=== PATIENT | male | born 1955 | race Caucasian/White ===

== ENCOUNTER 2021-11-23 12:29 | Inpatient (IN) | payer MEDICARE, OTHER ==
[~2021-11-23] VITALS: Ht 175.3 cm; Wt 122.7 kg
[2021-11-23 13:26] LABS: BASOPHILS % (AUTO) 0.6 % (0-1); EOSINOPHILS # (AUTO) 0.2 X10'3 (0-0.9); EOSINOPHILS % (AUTO) 4.3 % (0-6); HEMATOCRIT 40.4 % (42.0-52.0); HEMOGLOBIN 13.3 g/dl (14.0-17.9); LYMPHOCYTES % (AUTO) 17.3 % (21-51); MEAN CORPUSCULAR HEMOGLOBIN 27.1 PG (27.0-31.0); MEAN CORPUSCULAR HGB CONC 32.8 g/dL (33.0-36.5); MEAN CORPUSCULAR VOLUME 82.7 FL (78-98); MEAN PLATELET VOLUME 7.2 FL (7.4-10.4); MONOCYTES # (AUTO) 0.5 X10'3 (0-0.9); MONOCYTES % (AUTO) 9.2 % (2-12); NEUTROPHILS # (AUTO) 3.8 X10'3 (1.8-7.7); NEUTROPHILS % (AUTO) 68.6 % (42-75); PLATELET COUNT 293 X10'3 (140-440); RED BLOOD COUNT 4.89 X10'6 (4.70-6.10); WHITE BLOOD COUNT 5.6 X10'3 (4.5-11.0)
[2021-11-23 13:43] LABS: ALANINE AMINOTRANSFERASE 46 U/L (12-78); ALBUMIN 3.5 G/DL (3.4-5.0); ALBUMIN/GLOBULIN RATIO 0.9 (1.1-1.5); ALKALINE PHOSPHATASE 48 IU/L (46-116); ANION GAP 10 (8-16); ASPARTATE AMINO TRANSFERASE 31 U/L (10-37); BILIRUBIN,TOTAL 0.4 MG/DL (0.1-1.0); BLOOD UREA NITROGEN 22 MG/DL (7-18); BUN/CREATININE RATIO 16.9 (5.4-32.0); CALCIUM 8.5 MG/DL (8.5-10.1); CHLORIDE 107 MMOL/L (99-107); GLUCOSE 115 MG/DL (70-104); POTASSIUM 4.5 MMOL/L (3.5-5.1); SODIUM 142 MMOL/L (135-145); TOTAL CARBON DIOXIDE 24.8 MMOL/L (24-32); TOTAL PROTEIN 7.4 G/DL (6.4-8.2); eGFR 55 ML/MIN
--- NOTE | 2021-11-23 14:55 | NUR ---
Pt c/o chest pressure starting again 12/30. PA notified. Order for Nitro 0.4 SL received and administered po to pt.
[2021-11-23] MEDS ORDERED: nitroGLYCERIN 0.4mg SUBLingual tab SL ONE (14:59)
[2021-11-23] MEDS ORDERED: aspirin 325mg tablet PO ONE (15:35)
[2021-11-23] MEDS ORDERED: metoprolol tartrate 1mg/ml inj IV PRN (16:40)
[2021-11-23] MEDS ORDERED: aminophylline 250mg/10ml inj. IV PRN (16:40)
[2021-11-23] MEDS ORDERED: regadenoson 0.4mg/5ml syringe IV PRN (16:40)
[2021-11-23] MEDS ORDERED: magnesium 4gm in 100ml NS 100 ML IV PRN (16:40)
[2021-11-23] MEDS ORDERED: magnesium 2GM in 50ml NS 50 ML IV PRN (16:40)
[2021-11-23] MEDS ORDERED: potassium Cl 20 mEq SR tablet PO PRN ×2 (16:40)
[2021-11-23] MEDS ORDERED: magnesium hydroxide 30ml (MOM) UD suspension PO PRN (16:40)
[2021-11-23] MEDS ORDERED: morphine 2 MG/ML inj. syringe IV PRN ×2 (16:40)
[2021-11-23] MEDS ORDERED: acetaminophen 325mg tablet PO PRN (16:40)
[2021-11-23] MEDS ORDERED: ondansetron/PF 4mg/2ml inj IV PRN (16:40)
[2021-11-23] MEDS ORDERED: magnesium Cl slow-release 64mg tablet PO PRN (16:40)
[2021-11-23] MEDS ORDERED: potassium CL 10mEq/100ml bag 100 ML IV PRN (16:40)
[2021-11-23] MEDS ORDERED: nitroGLYCERIN 0.4mg SUBLingual tab SL PRN (16:40)
[2021-11-23] MEDS ORDERED: mag hydrox/Alum hydrox/simeth 30ml oral suspension PO PRN (16:40)
--- NOTE | 2021-11-23 16:50 | NUR ---
Pt reports no chest pressure at this time. Provided with ice water. Family at bedside.
[2021-11-23 17:14] LABS: MAGNESIUM 1.9 MG/DL (1.5-2.4); POTASSIUM 4.6 MMOL/L (3.5-5.1)
[2021-11-23 17:21] LABS: HEMOGLOBIN A1C 5.8 % (4.5-6.2)
--- NOTE | 2021-11-23 17:44 | NUR ---
states MD/ PA have received a copy of his medication list
--- NOTE | 2021-11-23 17:45 | NUR ---
Pt and family updated on wait for a bed
[2021-11-23] MEDS: K and/or MAG REPLACEMENT MC SCH (20:00)
[2021-11-23 21:00] VITALS: BP 167/77
--- NOTE | 2021-11-23 21:00 | NUR ---
Patient transfer from ER to PCU in a stable condition oriented to room bed in lower position call light within reach will continue to monitor and report changes
[2021-11-23] MEDS: docusate sod 100mg capsule PO SCH (21:37)
[2021-11-23] MEDS: enoxaparin 40mg/0.4ml syringe SQ SCH (21:37)
[2021-11-23 22:00] VITALS: BP 157/78
[2021-11-24] VITALS (13 sets, daily range): BP systolic 125–185; BP diastolic 72–93
[2021-11-24 07:01] LABS: BASOPHILS % (AUTO) 0.4 % (0-1); EOSINOPHILS # (AUTO) 0.3 X10'3 (0-0.9); EOSINOPHILS % (AUTO) 3.7 % (0-6); HEMATOCRIT 40.4 % (42.0-52.0); HEMOGLOBIN 13.4 g/dl (14.0-17.9); LYMPHOCYTES # (AUTO) 1.7 X10'3 (1.1-4.8); LYMPHOCYTES % (AUTO) 24.6 % (21-51); MEAN CORPUSCULAR HEMOGLOBIN 27.2 PG (27.0-31.0); MEAN CORPUSCULAR HGB CONC 33.2 g/dL (33.0-36.5); MEAN CORPUSCULAR VOLUME 81.9 FL (78-98); MEAN PLATELET VOLUME 7.5 FL (7.4-10.4); MONOCYTES # (AUTO) 0.8 X10'3 (0-0.9); MONOCYTES % (AUTO) 10.8 % (2-12); NEUTROPHILS # (AUTO) 4.2 X10'3 (1.8-7.7); NEUTROPHILS % (AUTO) 60.5 % (42-75); PLATELET COUNT 289 X10'3 (140-440); RED BLOOD COUNT 4.94 X10'6 (4.70-6.10); RED CELL DISTRIBUTION WIDTH 15.4 % (11.5-14.5)
[2021-11-24 07:12] LABS: ALANINE AMINOTRANSFERASE 42 U/L (12-78); ALBUMIN 3.5 G/DL (3.4-5.0); ALBUMIN/GLOBULIN RATIO 0.9 (1.1-1.5); ALKALINE PHOSPHATASE 51 IU/L (46-116); ANION GAP 8 (8-16); ASPARTATE AMINO TRANSFERASE 25 U/L (10-37); BILIRUBIN,TOTAL 0.4 MG/DL (0.1-1.0); BLOOD UREA NITROGEN 19 MG/DL (7-18); BUN/CREATININE RATIO 15.2 (5.4-32.0); CALCIUM 8.8 MG/DL (8.5-10.1); CHLORIDE 104 MMOL/L (99-107); CHOL/HDL RATIO 3.3 (0.00-4.99); CHOLESTEROL 135 MG/DL (0-200); CREATININE 1.25 MG/DL (0.60-1.10); GLUCOSE 125 MG/DL (70-104); HDL CHOLESTEROL 41 MG/DL (35-60); LDL CHOLESTEROL 70 MG/DL (50-100); MAGNESIUM 2.2 MG/DL (1.5-2.4); SODIUM 137 MMOL/L (135-145); TOTAL CARBON DIOXIDE 25.4 MMOL/L (24-32); TOTAL PROTEIN 7.6 G/DL (6.4-8.2); TRIGLYCERIDES 121 MG/DL (20-135); eGFR 58 ML/MIN
[2021-11-24] MEDS: docusate sod 100mg capsule PO SCH ×2 (08:00→20:00)
[2021-11-24] MEDS: K and/or MAG REPLACEMENT MC SCH ×2 (08:00→19:41)
--- NOTE | 2021-11-24 09:13 | NUR ---
Page Sent PAGER ID: [phone] MESSAGE: [phone]. Liu Villalobos. patient admitted for CP, stress test scheduled today. he just went into AFIB this morning with HR in the 110. please adv. [id number] Brenda
--- NOTE | 2021-11-24 09:19 | NUR ---
page sent PAGER ID: [phone] MESSAGE: [phone]. Liu Villalobos. SAMI is now sustain in the 125's. i'm going to give the metoprolol now. he went as high as 150 for a brief moment. Brenda [id number]
[2021-11-24] MEDS ORDERED: metoprolol tartrate 1mg/ml inj IV ONE (09:20)
--- NOTE | 2021-11-24 09:34 | NUR ---
Page Sent promotional table spacer PAGER ID: [phone] MESSAGE: [id number]. Griselda Hatfield. FYI EKG confirm a-fib wever he just convert back into SR HR rate 66. did not give metoprolol. [id number] Brenda patient is now back in SR, he's going to his stress testing.
[2021-11-24] MEDS ORDERED: LISI40TA13 PO (10:52)
[2021-11-24] MEDS ORDERED: OMEP20CA16 PO (10:52)
[2021-11-24] MEDS ORDERED: BUSP10TA3 PO (10:52)
[2021-11-24] MEDS ORDERED: PRAZ1CAP5 PO (10:52)
[2021-11-24] MEDS ORDERED: PRAV40TA3 PO (10:52)
[2021-11-24] MEDS ORDERED: FLUV100T21 PO (10:52)
[2021-11-24] MEDS ORDERED: NITR0.4T48 SL (10:52)
[2021-11-24] MEDS ORDERED: NIFE-34 PO (10:52)
[2021-11-24] MEDS ORDERED: HYDR-3927 PO (10:52)
[2021-11-24] MEDS ORDERED: TRAZ-256 PO (12:43)
[2021-11-24] MEDS ORDERED: METO50TA16 PO (12:47)
--- NOTE | 2021-11-24 18:28 | NUR ---
Page Sent PAGER ID: [phone] MESSAGE: [phone]. Liu Villalobos. can you please address his home meds. he has psych meds that he does not want to miss. thank [phone] Bridgett Gutierrez HS RN
--- NOTE | 2021-11-24 19:26 | NUR ---
Patient in room U 3016. I have received report from DENTON ASCENCIO and had the opportunity to ask questions and assume patient care. Addendum: 11/24/21 at 1927 by Bridgett Jacome RN DUPLICATE
--- NOTE | 2021-11-24 19:26 | NUR ---
Patient in room PCU 3016. I have received report from DENTON ASCENCIO and had the opportunity to ask questions and assume patient care.
[2021-11-24] MEDS ORDERED: metoprolol tartrate 25mg tablet PO SCH (20:00)
[2021-11-24] MEDS: enoxaparin 40mg/0.4ml syringe SQ SCH (20:41)
[2021-11-24] MEDS ORDERED: nitroGLYCERIN 0.4mg SUBLingual tab SL PRN (20:45)
[2021-11-24] MEDS ORDERED: pravastatin 40mg tablet PO SCH (20:45)
[2021-11-24] MEDS ORDERED: traZODone 50mg tablet PO PRN (20:55)
[2021-11-24] MEDS ORDERED: prazosin 1mg capsule PO SCH (21:00)
[2021-11-24] MEDS ORDERED: fluvoxamine 25 MG tablet PO SCH ×2 (21:00)
[2021-11-24] MEDS: hydrOXYzine 25 MG tablet PO SCH (21:37)
[2021-11-24] MEDS: busPIRone 5mg tablet PO SCH (21:40)
[2021-11-24] MEDS ORDERED: cloNIDine 0.1 mg tablet PO PRN (22:30)
--- NOTE | 2021-11-24 22:55 | NUR ---
PATIENT COMPLAINING OF CP AND MD NOTIFIED. NITROGLYCERIN X 1 DOSE AND PATIENT STATES FEELING BETTER. NO MORE CP. MD ORDERED TROPONIN STAT AND EKG TAKEN. WILL SHOW EKG RESULTS TO MD FOR EVALUATION.
[2021-11-24] MEDS: apixaban 5mg tablet PO SCH (23:22)
[2021-11-25 02:52] VITALS: BP 154/80
--- NOTE | 2021-11-25 06:44 | NUR ---
Student Medication Administration: For this medication-pass time frame, all medication were reviewed, dispensed, administered and documented per hospital policy by BUDDY CARLSON.
--- NOTE | 2021-11-25 06:44 | NUR ---
Student documentation: I have reviewed and agree with all interventions, assessments performed and documented by BUDDY CARLSON.
--- NOTE | 2021-11-25 06:45 | NUR ---
Problems reprioritized. Patient report given, questions answered & plan of care reviewed with JUAN MANUEL ASCENCIO.
[2021-11-25 07:00] VITALS: BP 163/93
[2021-11-25 07:00] LABS: BASOPHILS % (AUTO) 0.4 % (0-1); EOSINOPHILS # (AUTO) 0.2 X10'3 (0-0.9); EOSINOPHILS % (AUTO) 4.2 % (0-6); LYMPHOCYTES # (AUTO) 1.5 X10'3 (1.1-4.8); LYMPHOCYTES % (AUTO) 26.9 % (21-51); MEAN CORPUSCULAR HEMOGLOBIN 27.3 PG (27.0-31.0); MEAN CORPUSCULAR HGB CONC 32.6 g/dL (33.0-36.5); MEAN CORPUSCULAR VOLUME 83.8 FL (78-98); MEAN PLATELET VOLUME 7.6 FL (7.4-10.4); MONOCYTES # (AUTO) 0.6 X10'3 (0-0.9); MONOCYTES % (AUTO) 11.3 % (2-12); NEUTROPHILS # (AUTO) 3.1 X10'3 (1.8-7.7); NEUTROPHILS % (AUTO) 57.2 % (42-75); PLATELET COUNT 275 X10'3 (140-440); RED BLOOD COUNT 4.77 X10'6 (4.70-6.10); RED CELL DISTRIBUTION WIDTH 14.9 % (11.5-14.5); WHITE BLOOD COUNT 5.4 X10'3 (4.5-11.0)
[2021-11-25] MEDS ORDERED: pantoprazole 40mg Tablet.DR PO SCH (07:30)
[2021-11-25] MEDS ORDERED: NIFEdipine XL 30mg tablet PO SCH (08:00)
[2021-11-25] MEDS ORDERED: metoprolol tartrate 50mg tablet PO SCH (08:00)
[2021-11-25] MEDS ORDERED: lisinopril 20mg tablet PO SCH (08:00)
--- NOTE | 2021-11-25 08:43 | NUR ---
Urgent morning med message to pharmacy 11/25/2021 please send me patient pravacol 40 mg and fluvoxamine 300 mg doses for the morning. They are not available for me to take and administer in both omnicell on the PCU unit. thank you. Brenda [phone]
[2021-11-25] MEDS: hydrOXYzine 25 MG tablet PO SCH (08:47)
[2021-11-25] MEDS: docusate sod 100mg capsule PO SCH (08:47)
[2021-11-25 08:49] VITALS: BP_SYST 185
[2021-11-25] MEDS: apixaban 5mg tablet PO SCH (08:49)
[2021-11-25] MEDS: busPIRone 5mg tablet PO SCH (08:50)
[2021-11-25 08:55] LABS: ALANINE AMINOTRANSFERASE 41 U/L (12-78); ALBUMIN 3.2 G/DL (3.4-5.0); ALBUMIN/GLOBULIN RATIO 0.8 (1.1-1.5); ALKALINE PHOSPHATASE 44 IU/L (46-116); ASPARTATE AMINO TRANSFERASE 30 U/L (10-37); BILIRUBIN,TOTAL 0.4 MG/DL (0.1-1.0); BLOOD UREA NITROGEN 19 MG/DL (7-18); BUN/CREATININE RATIO 15.3 (5.4-32.0); CALCIUM 8.8 MG/DL (8.5-10.1); CREATININE 1.24 MG/DL (0.60-1.10); GLUCOSE 115 MG/DL (70-104); MAGNESIUM 2.4 MG/DL (1.5-2.4); TOTAL CARBON DIOXIDE 25.1 MMOL/L (24-32); TOTAL PROTEIN 7.2 G/DL (6.4-8.2); eGFR 58 ML/MIN
[2021-11-25] MEDS ORDERED: APIX5TAB3 PO (12:14)
[2021-11-25 15:59] LABS: POTASSIUM 4.3 MMOL/L (3.3-5.1)
== END 2021-11-25 13:24 | disposition home or self-care (01) | DRG 313 ==
LOC: ER 12:29 → ED HOLD 16:52 → EDBEDREQ 19:34 → PCU 3S 20:55
PROVIDERS: ADMIT Internal Medicine; ATTEND Internal Medicine
PROC: 4A02XM4 Measurement of Cardiac Total Activity, External Approach (ICD-10-PCS; 2021-11-24)
PROC: 3E033HZ Introduction of Radioactive Substance into Peripheral Vein, Percutaneous Approach (ICD-10-PCS; 2021-11-24)
PROC: 5A09357 Assistance with Respiratory Ventilation, Less than 24 Consecutive Hours, Continuous Positive Airway Pressure (ICD-10-PCS; principal; 2021-11-25)
DX: R07.9 Chest pain, unspecified (principal); N17.9 Acute kidney failure, unspecified; Z68.41 Body mass index [BMI] 40.0-44.9, adult; E66.01 Morbid (severe) obesity due to excess calories; F31.9 Bipolar disorder, unspecified; F41.0 Panic disorder [episodic paroxysmal anxiety]; F42.9 Obsessive-compulsive disorder, unspecified; I10 Essential (primary) hypertension; Z88.8 Allergy status to other drugs, medicaments and biological substances
CPT/HCPCS: 36415; 71045; 78452; 80053; 80061; 83036; 83735; 83880; 84132; 84484; 85025; 87081; 93005; 93017; 93306; 99285; A9500; G0378; J1650; J2785; Q0177

== ENCOUNTER 2024-05-10 08:56 | Outpatient (CLI) | payer OTHER, MEDICARE ==
[~2024-05-10 08:56] MED LIST: APIX5TAB3 PO; BUSP10TA3 PO; FLUV100T21 PO; HYDR-3927 PO; LISI40TA13 PO; METO50TA16 PO; NIFE-34 PO; NITR0.4T48 SL; OMEP20CA16 PO; PRAV40TA3 PO; PRAZ1CAP5 PO; TRAZ-256 PO
== END 2024-05-10 23:59 | disposition home or self-care (01) ==
LOC: CARD DIAG 08:56
PROVIDERS: ATTEND Chiropractor
DX: I08.8 Other rheumatic multiple valve diseases (principal); I25.9 Chronic ischemic heart disease, unspecified
CPT/HCPCS: 93005; 93306

== ENCOUNTER 2024-09-02 08:27 | Outpatient (CLI) | payer OTHER, MEDICARE | END 2024-09-02 23:59 | disposition home or self-care (01) | LOC: NM 08:27 | PROVIDERS: ATTEND Internal Medicine | DX: Z01.89 Encounter for other specified special examinations (principal); K31.84 Gastroparesis | CPT/HCPCS: 78264; A9541 ==